=== PATIENT | male | born 2000 ===

== ENCOUNTER 2025-08-10 11:21 | Emergency (ER) | payer OTHER ==
[~2025-08-10] VITALS: Ht 162.6 cm; Wt 54.4 kg
[2025-08-10 11:34] VITALS: BP 128/93
[2025-08-10 12:41] VITALS: BP 128/93; O2SAT 99
== END 2025-08-10 12:42 | disposition home or self-care (01) ==
LOC: ER 11:27
DX: K13.79 Other lesions of oral mucosa (principal); G40.909 Epilepsy, unspecified, not intractable, without status epilepticus; K14.9 Disease of tongue, unspecified
CPT/HCPCS: A4606; A4663